=== PATIENT | male | born 1950 | race Caucasian/White ===

== ENCOUNTER 2018-09-05 16:21 | Emergency (ER) | payer SELFPAY ==
[~2018-09-05] VITALS: Ht 167.6 cm; Wt 96.0 kg
[2018-09-05 16:33] VITALS: BP 125/70; PULSE 87; RESP 20; Ht 167.6 cm; Wt 96.0 kg
== END 2018-09-05 19:05 | disposition left against medical advice (07) ==
LOC: E/R 16:21
DX: Z53.21 Procedure and treatment not carried out due to patient leaving prior to being seen by health care provider (principal)
CPT/HCPCS: 93005